=== PATIENT | male | born 1970 | race African-American/Black ===

== ENCOUNTER 2018-08-09 10:25 | Emergency (ER) | payer BC ==
[~2018-08-09] VITALS: Ht 203.2 cm; Wt 129.3 kg
--- OUTSIDE RECORDS SUMMARY | 2018-08-09 10:30 | XMS REPORT ---
Author Author RAFFI VAZQUEZ [facility] Address [address] [place] [address] Care Team Providers Care Sales Representative Name Role Phone RAFFI VAZQUEZ Unavailable PROBLEMS Type Condition ICD9-CM Code IZF45-GU Code Onset Dates Condition Status SNOMED Code Problem Insomnia, unspecified 780.52 Active 195288757 Problem Lumbago with sciatica, left side M54.42 Active 140332187 Problem Adult behavior problem F69 Active 421935457335675 Problem Carpal tunnel syndrome 354.0 Active 42725705 Problem Pain in joint, lower leg 719.46 Active 553844924 Problem Other hyperlipidemia E78.4 Active 78245343 Problem Hypertension 401.9 Active 24676342 ALLERGIES Substance Reaction Event Type Date Status Omnicef Unknown Drug Allergy Jun, Active SOCIAL HISTORY Never Assessed PLAN OF CARE VITAL SIGNS Height 80 in 2016-07-12 Weight 282 lbs 2016-07-12 Temperature 99 degrees Fahrenheit 2016-07-12 Heart Rate 90 bpm 2016-07-12 Respiratory Rate 18 2016-07-12 BMI 30.98 kg/m2 2016-07-12 Blood pressure systolic 140 mmHg 2016-07-12 Blood pressure diastolic 90 mmHg 2016-07-12 MEDICATIONS Medication Instructions Dosage Frequency Start Date End Date Duration Status Fish Oil 1000 MG Orally Once a day 1 capsule 24h Active Lisinopril-Hydrochlorothiazide 20-12.5 MG Orally Once a day 2 tablets 24h Active Amlodipine Besylate 10 MG Orally Once a day 1 tablet 24h Active Aspirin 81 MG 1 tablet by Oral route 1 time per day May, Active PredniSONE 20 mg Orally Once a day 2 tablets 24h Jun, Jun, 05 days Active Pravastatin Sodium 10 MG Orally Once a day 1 tablet 24h Active RESULTS No Results PROCEDURES No Known procedures IMMUNIZATIONS No Known Immunizations MEDICAL (GENERAL) HISTORY Type Description Date Medical History hypertension Medical History hyperlipidemia Surgical History right ACL repair x2 Surgical History vasectomy Surgical History left foot surgery Surgical History cyst removed; right arm Surgical History pylonidol cyst Hospitalization History surgeries Hospitalization History mennangitis(spinal) 2002
--- OUTSIDE RECORDS SUMMARY | 2018-08-09 10:30 | XMS REPORT ---
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 Active 598402314 Problem Uncontrolled type 2 diabetes mellitus without complication, without long-term current use of insulin E11.65 Active 585885919 Problem Other hyperlipidemia E78.4 Active 02755982 Problem Hypertension 401.9 Active 06886444 Problem Lumbago with sciatica, left side M54.42 Active 798514701 Problem Adult behavior problem F69 Active 884029384230239 ALLERGIES Substance Reaction Event Type Date Status Omnicef Unknown Drug Allergy May, Active ENCOUNTERS Encounter Location Date Diagnosis [place] [id number] [place] [address]862- 3962 May, Traumatic plantar fasciitis S93.699A and 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 [facility] [id number] [place] [address]79- 0374 Jan, Uncontrolled type 2 diabetes mellitus without complication, without long-term current use of insulin E11.65 and Folliculitis L73.9 [place] [address] [address]48- 9642 Oct, Encounter for immunization Z23 [place] [address] [place] [id number] [place] [address]11- 0467 Oct, Uncontrolled type 2 diabetes mellitus without complication, without long-term current use of insulin E11.65 [facility] [id number] [place] [address] 75661- 1505 Oct, [facility] [id number] [place] [address] 07261- 9420 Sep, Uncontrolled type 2 diabetes mellitus without complication, without long-term current use of insulin E11.65 [facility] [address] [address]- 7217 Apr, [facility] [address] [address] Mar, Lumbago with sciatica, left side M54.42 [place] [address] 87797- 0415 Dec, [place] [address] 8[address]54- 0210 Sep, [place] [address] 64460- 0992 Sep, Adult behavior problem F69 [place] [address] 19352- 1933 Jul, Encounter for immunization Z23 [place] [address] 09778- 0877 Jun, Tendonitis M77.9 and Hypertension, benign I10 [place] [address] 84459- 0331 Jun, Tendonitis M77.9 and Hypertension, benign I10 [place] [address] 10552- 0984 May, [place] [address] 91932- 2920 February, [place] [address] [id number] [place] [address] 96471- 4671 Nov, [place] [address], [place] [address] 1063 Oct, Hypertension 401.9 [facility] [id number] [place] [address] 28533- 9872 Sep, Knee pain, left M25.562 [facility] [id number] [place] [address] 49240- 9310 Sep, Upper respiratory tract infection, unspecified type J06.9 and Cough R05 [facility] [id number] [place] [address] 64837- 6371 Jul, [facility] [id number] [place] [address] 68674- 8262 Jul, [facility] [id number] [place] [address] 58544- 5272 Jul, [facility] [id number] [place] [address] 30787- 3014 Jul, Encounter for immunization Z23 [facility] [id number] [place] [address] 65393- 9927 29 Jun, 2015 Knee pain, left 719.46 [facility] [id number] [place] [address] 28627- 0673 28 Jun, 2015 Hypertension 401.9 [facility] [address] [place] [address] 65530- 2063 11 Jun, 2015 Left knee pain 719.46 [facility] [address] [place] [address] 33056- 3343 May, [facility] [id number] [place] [address] 62970- 1706 14 Jan, 2015 [facility] [id number] [place] [address] 13276- 0010 Jan, [facility] [address] [place] [address] 96984- 8015 Aug, [facility] [place] [facility] [address] [id number] [place] [address]- 2274 Aug, [facility] [place] [facility] [address] [id number] [place] [address] Aug, [facility] [place] [facility] [address] [id number] [place] 3[address] Jul, [facility] [place] [facility] [address] [id number] [place] [address]- 5434 Jul, [facility] [place] [facility] [address] [id number] [place] [address]- 2512 Jul, [facility] [place] [facility] [address] [id number] [place] [address]- 8525 Jul, [facility] [place] [facility] [address] [id number] [place] [address]- 9178 Jul, [facility] [place] [facility] [address] [id number] [place] [address]- 4915 Jul, [facility] [place] [facility] [address] [id number] [place] [address]- 9531 Jun, [facility] [place] [facility] [address] [id number] [place] [address]- 0234 Jun, [facility] [place] [facility] [address] [id number] [place] [address]- 0702 Jun, [facility] [place] [facility] [address] [id number] [place] [address]- 5589 Jun, [facility] [place] [facility] [address] [id number] [place] [address]- 8707 May, [facility] [place] [facility] [address] [id number] [place] [address]- 3922 May, [facility] [place] [facility] [address] [id number] [place] [address]- 2266 May, [facility] [place] [facility] [address] [id number] [place] [address]- 7275 May, [facility] [place] [facility] [address] [id number] [place] [address]- 0999 May, [facility] [place] [facility] [address] [id number] [place] [address]- 8503 May, [facility] [place] [facility] [address] [id number] [place] [address]- 2266 Apr, [facility] [place] [facility] [address] [id number] [place] [address]- 1207 Apr, [facility] [place] [facility] [address] [id number] [place] [address]- 4743 February, [facility] [place] [facility] [address] [id number] [place] [address]- 5996 February, [facility] [place] [facility] [address] [id number] [place] [address]- 8680 February, [facility] [place] [facility] [address] [id number] [place] [address]- 0367 Jan, [facility] [place] [facility] [address] [id number] [place] [address]- 1953 Nov, [facility] [place] [facility] [address] [id number] [place] [address]- 8343 Nov, [facility] [place] [facility] [address] [id number] [place] [address]- 2713 Oct, [facility] [place] [facility] [address] [id number] [place] [address]- 8079 Sep, [facility] [place] [facility] [address] [id number] [place] [address]- 4589 Sep, [facility] [place] [facility] [address] [id number] [place] [address]- 1616 Jul, [facility] [place] [facility] [address] [id number] [place] [address]- 7816 Jul, [facility] [place] [facility] [address] [place] [address]- 2546 Mar, [facility] [address], [place] [address]- 7596 Jan, [facility] [address], [place] [address] 2546 Jan, [facility] [id number] [place] [address] 64319- 4895 Dec, [facility] [id number] [place] [address] 31325- 6136 Nov, [facility] [address] [place] [id number] [place] [address] [id number] Oct, [facility] [id number] [place] [address] 66636- 4046 Oct, [facility] [id number] [place] [address] 17647- 5286 Oct, [facility] [address], [place] [address]- 8440 Sep, [facility] [id number] [place] [address] 84175- 7626 Sep, [facility] [address], [place] [address]- 2286 Jan, IMMUNIZATIONS No Known Immunizations SOCIAL HISTORY Never Assessed REASON FOR VISIT Pain (acute) foot Pt c/o R foot pain, starts at top of foot, radiates into arch and now up into calf of Rt leg, went on canoe trip two weeks ago and foot started hurting right after canoe trip, does not recal actual injury SHARRON Ray PLAN OF CARE VITAL SIGNS Height 80 in 2018-05-20 Weight 285.3 lbs 2018-05-20 Temperature 98.3 degrees Fahrenheit 2018-05-20 Heart Rate 118 bpm 2018-05-20 Respiratory Rate 18 2018-05-20 BMI 31.34 kg/m2 2018-05-20 Blood pressure systolic 162 mmHg 2018-05-20 Blood pressure diastolic 98 mmHg 2018-05-20 MEDICATIONS Medication Instructions Dosage Frequency Start Date End Date Duration Status Aspirin 81 MG 1 tablet by Oral route 1 time per day May, Active Farxiga 10 mg Orally Once a day 1 tablet 24h Oct, Active Lisinopril-Hydrochlorothiazide 20-12.5 MG Orally Once a day 2 tablets 24h 90 Active Amlodipine Besylate 10 MG TAKE ONE TABLET BY MOUTH ONCE DAILY (MUST HAVE APPOINTMENT FOR FURTHER REFILLS) 90 Active Fish Oil 1000 MG Orally Once a day 1 capsule 24h Active MetFORMIN HCl ER 500 mg Orally twice a day 2 tablets 12h Active Pravastatin Sodium 10 MG TAKE ONE TABLET BY MOUTH ONCE DAILY (MUST HAVE APPOINTMENT FOR FURTHER REFILLS) 90 Active PredniSONE 20 mg Orally Once a day 2 tablets 24h May, May, 05 days Active Glimepiride 4 MG Orally Once a day 1 tablet with breakfast or the first main meal of the day 24h Active Diclofenac Sodium 75 MG Orally Twice a day 1 tablet with food or milk 12h May, Jul, 30 day(s) Active Viagra 100 mg Orally Once a day 1 tablet as needed 24h May,May 10 days Active RESULTS No Results PROCEDURES No Known procedures INSTRUCTIONS MEDICATIONS ADMINISTERED No Known Medications MEDICAL (GENERAL) HISTORY Type Description Date Medical History hypertension Medical History hyperlipidemia Surgical History right ACL repair x2 Surgical History vasectomy Surgical History left foot surgery Surgical History cyst removed; right arm Surgical History pylonidol cyst Hospitalization History surgeries Hospitalization History mennangitis(spinal) 2001 Hospitalization History [place] 09/2017
--- OUTSIDE RECORDS SUMMARY | 2018-08-09 10:30 | XMS REPORT ---
Author Author RAFFI VAZQUEZ Organization 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 Active 553727866 Problem Uncontrolled type 2 diabetes mellitus without complication, without long-term current use of insulin E11.65 Active 929194813 Problem Other hyperlipidemia E78.4 Active 31826874 Problem Hypertension 401.9 Active 06965468 Problem Lumbago with sciatica, left side M54.42 Active 607529436 Problem Adult behavior problem F69 Active [id number] ALLERGIES Substance Reaction Event Type Date Status Omnicef Unknown Drug Allergy Jan, Active ENCOUNTERS Encounter Location Date Diagnosis [place] [address] [address]- [address] May, Traumatic plantar fasciitis S93.699A and 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 [address] [address]- 2800 Sep, Uncontrolled type 2 diabetes mellitus without complication, without long-term current use of insulin E11.65 [facility] [address] 02896- 0401 Apr, [facility] [address] [address] -[address]33 Mar, Lumbago with sciatica, left side M54.42 [facility] [address] 65006- 5326 Dec, [facility] [address] 51629- 7350 Sep, [facility] [address] 58343- 2055 Sep, Adult behavior problem F69 [place] [address] 03137- 0022 Jul, Encounter for immunization Z23 [place] [address] 00841- 6800 26 Jun, 2016 Tendonitis M77.9 and Hypertension, benign I10 [facility] [address] 78961- 2571 Jun, Tendonitis M77.9 and Hypertension, benign I10 [facility] [address] [place] [id number] [place] [address] 81763- 8749 May, [facility] [address] 25862- 5591 February, [facility] [address] 73641- 1568 Nov, [facility] [address] 37581- 8153 Oct, Hypertension 401.9 [facility] [id number] [place] [address] 20042- 4884 Sep, Knee pain, left M25.562 [facility] [id number] [place] [address] 32799- 6993 Sep, Upper respiratory tract infection, unspecified type J06.[address] [facility] [id number] [place] [address] 46930- 8507 Jul, [facility] [id number] [place] [address] 28386- 2591 Jul, [facility] [id number] [place] [address] 15595- 8429 Jul, [facility] [id number] [place] [address] 31509- 0607 Jul, Encounter for immunization Z23 [facility] [id number] [place] [address] 27800- 7926 29 Jun, 2015 Knee pain, left 719.46 [facility] [id number] [place] [address] 38941- 8682 28 Jun, [address] [facility] [id number] [place] [address] 43988- 7180 11 Jun, 2015 Left knee pain 719.46 [facility] [id number] [place] [address] 80289- 3375 May, [facility] [id number] [place] [address] 01463- 7585 Jan, [facility] [id number] [place] [address] 66615- 6723 13 Jan, 2015 [facility] [id number] [place] [address] 63868- 0727 Aug, [facility] [address] 03078- 2546 Aug, [facility] [place] [facility] [address] [id number] [place] [address]- 9360 Aug, [facility] [place] [facility] [address] [id number] [place] [address]- 0451 Jul, [facility] [place] [facility] [address] [id number] [place] 2305 Jul, [facility] [place] [facility] [address] [id number] [place] [address]- 4133 Jul, [facility] [place] [facility] [address] [id number] [place] [address]- 3759 Jul, [facility] [place] [facility] [address] [id number] [place] [address]- 3118 Jul, [facility] [place] [facility] [address] [id number] [place] [address]- 1791 Jul, [facility] [place] [facility] [address] [id number] [place] [address]- 6958 Jun, [facility] [place] [facility] [address] [id number] [place] [address]- 7274 Jun, [facility] [place] [facility] [address] [id number] [place] [address]- 0289 Jun, [facility] [place] [facility] [address] [id number] [place] [address]- 9455 Jun, [facility] [place] [facility] [address] [id number] [place] [address]- 7817 May, [facility] [place] [facility] [address] [id number] [place] [address]- 4079 May, [facility] [place] [facility] [address] [id number] [place] [address]- 1572 May, [facility] [place] [facility] [address] [id number] [place] [address]- 4460 May, [facility] [place] [facility] [address] [id number] [place] [address]- 2546 May, [facility] [address] [id number] [place] [address]- 9469 May, [facility] [place] [facility] [address] [id number] [place] [address]- 2546 Apr, [facility] [address] [id number] [place] [address]- 9088 Apr, [facility] [place] [facility] [address] [id number] [place] [address]- 7048 February, [facility] [address] [id number] [place] [address]- 6776 February, [facility] [address] [id number] [place] [address]- 7126 February, [facility] [place] [facility] [address] [id number] [place] [address]- 3806 Jan, [facility] [address] [id number] [place] [address]- 2943 Nov, [facility] [address] [id number] [place] [address]- 2696 Nov, [facility] [address] [id number] [place] [address]- 2546 Oct, [facility] [address] [id number] [place] [address]- 2546 Sep, [facility] [place] [facility] [address] [id number] [place] [address]- 2546 Sep, [facility] [place] [facility] [address] [id number] [place] [address]- 2546 Jul, [facility] [place] [facility] [address] [id number] [place] [address]- 2546 Jul, [facility] [place] [facility] [address] [id number] [place] [address]- 2546 Mar, [facility] [address], [place] [address] 0526 Jan, [facility] [address] [address] 2546 Jan, [facility] [address], [place] [address]- 6386 Dec, [facility] [address] [place] [id number] [place] [address] 86893 2546 Nov, [facility] [address] [id number] Oct, [facility] [address] [id number] [place] [address] 55082- 1046 Oct, [facility] [id number] [place] [address] 01100- 5956 Oct, [facility] [id number] [place] [address] 85943- 2766 Sep, [facility] [address] [place] [address] 38998- 4676 Sep, [facility] [address], [place] [address]- 4016 Jan, IMMUNIZATIONS No Known Immunizations SOCIAL HISTORY Never Assessed REASON FOR VISIT Diabetes----DBennettRN, NEED MICRO, UNABLE TO VOID PLAN OF CARE Activity Details Follow Up 3 Months Reason:dm2 3mo. checkup VITAL SIGNS Height 80 in 2018-02-11 Weight 269 lbs 2018-02-11 Temperature 98.8 degrees Fahrenheit 2018-02-11 Heart Rate 70 bpm 2018-02-11 Respiratory Rate 20 2018-02-11 BMI 29.55 kg/m2 2018-02-11 Blood pressure systolic 138 mmHg 2018-02-11 Blood pressure diastolic 94 mmHg 2018-02-11 MEDICATIONS Medication Instructions Dosage Frequency Start Date End Date Duration Status Pravastatin Sodium 10 MG TAKE ONE TABLET BY MOUTH ONCE DAILY (MUST HAVE APPOINTMENT FOR FURTHER REFILLS) 90 Active Cephalexin 500 mg Orally 4 times a day 1 capsule 6h Jan, February, 10 day(s) Active Aspirin 81 MG 1 tablet by Oral route 1 time per day May, Active Amlodipine Besylate 10 MG TAKE ONE TABLET BY MOUTH ONCE DAILY (MUST HAVE APPOINTMENT FOR FURTHER REFILLS) 90 Active Fish Oil 1000 MG Orally Once a day 1 capsule 24h Active Glimepiride 4 MG Orally Once a day 1 tablet with breakfast or the first main meal of the day 24h Active MetFORMIN HCl ER 500 mg Orally twice a day 2 tablets 12h Active Lisinopril-Hydrochlorothiazide 20-12.5 MG Orally Once a day 2 tablets 24h 90 Active Farxiga 10 mg Orally Once a day 1 tablet 24h Oct, Active RESULTS Name Result Date Reference Range A1C (IN HOUSE) 2018-02-11 A1C IN HOUSE 7.7 4.3 - 5.6 % Previous A1c n/a Lot [id number] Exp date 12/09 PROCEDURES Procedure Date Ordered Result Body Site GLYCATED HEMOGLOBIN TEST February 11, 2018 INSTRUCTIONS MEDICATIONS ADMINISTERED No Known Medications MEDICAL (GENERAL) HISTORY Type Description Date Medical History hypertension Medical History hyperlipidemia Surgical History right ACL repair x2 Surgical History vasectomy Surgical History left foot surgery Surgical History cyst removed; right arm Surgical History pylonidol cyst Hospitalization History surgeries Hospitalization History mennangitis(spinal) 2001 Hospitalization History [facility] 09/2017
--- OUTSIDE RECORDS SUMMARY | 2018-08-09 10:31 | XMS REPORT ---
Author WESLEY Augustin Organization [employer] Address Unknown Phone Unavailable Care Team Providers Care Enameler Name Role Phone WESLEY MOYER CP Unavailable Allergies No Known Allergies Problems Problem Type Condition ICD-9 Code Onset Dates Condition Status Problem Other and unspecified noninfectious gastroenteritis and colitis 558.9 Active Problem Routine general medical examination at health care facility V70.0 Active Problem Insomnia, unspecified 780.52 Active Problem Need for prophylactic vaccination and inoculation, Influenza V04.81 Active Problem Carpal tunnel syndrome 354.0 Active Problem Pain in joint, lower leg 719.46 Active Problem Abdominal pain, other specified site 789.09 Active Problem Other and unspecified hyperlipidemia 272.4 Active Medications Medication Code System Code Instructions Start Date End Date Status Dosage Pravastatin Sodium [facility] [address]-24 10 MG Orally Once a day 1 tablet Amlodipine Besylate [facility] [address]-54 10 MG Orally Once a day 1 tablet Lisinopril-Hydrochlorothiazide [facility] [address]-45 20-25 MG Orally Once a day 1 tablet Results No Known Results Summary Purpose [employer] Submission
--- OUTSIDE RECORDS SUMMARY | 2018-08-09 10:31 | XMS REPORT ---
Author RAFFI Mari Organization [employer] Address Unknown Phone Unavailable Care Team Providers Care Clock And Watch Hands Painter Name Role Phone RAFFI VAZQUEZ CP Unavailable Allergies No Known Allergies Problems Problem Type Condition Code Onset Dates Condition Status Problem Pain in joint, lower leg 719.46 Active Problem Other and unspecified noninfectious gastroenteritis and colitis 558.9 Active Problem Need for prophylactic vaccination and inoculation, Influenza V04.81 Active Problem Routine general medical examination at health care facility V70.0 Active Problem Hypertension 401.9 Active Problem Other and unspecified hyperlipidemia 272.4 Active Problem Carpal tunnel syndrome 354.0 Active Problem Insomnia, unspecified 780.52 Active Problem Abdominal pain, other specified site 789.09 Active Medications Medication Code System Code Instructions Start Date End Date Status Dosage 5-Hydroxytryptophan NDC 0 100 MG Orally Once a day Aug 04, 2015 1 capsule with a meal Results No Known Results Summary Purpose [employer] Submission
--- OUTSIDE RECORDS SUMMARY | 2018-08-09 10:31 | XMS REPORT ---
Author Author RAFFI VAZQUEZ Organization [facility] Address [address] [place] [address] Care Team Providers Care Ward Supervisor Name Role Phone RAFFI VAZQUEZ Unavailable PROBLEMS Type Condition ICD9-CM Code RFX56-HX Code Onset Dates Condition Status SNOMED Code Problem Pain in joint, lower leg 719.46 Active 626046399 Problem Insomnia, unspecified 780.52 Active 416254064 Problem Uncontrolled type 2 diabetes mellitus without complication, without long-term current use of insulin E11.65 Active 823488792 Problem Lumbago with sciatica, left side M54.42 Active 493558247 Problem Hypertension 401.9 Active 63570657 Problem Carpal tunnel syndrome 354.0 Active 81943737 Problem Adult behavior problem F69 Active 033893052766923 Problem Other hyperlipidemia E78.4 Active 99562784 ALLERGIES No Information ENCOUNTERS Encounter Location Date Diagnosis [place] [address] [id number] [place] [address]82- 2054 Jan, [place] [address] [address]- 5121 Oct, Encounter for immunization Z23 [place] [address] 15967- 3711 Oct, Uncontrolled type 2 diabetes mellitus without complication, without long-term current use of insulin E11.65 [place] [id number] [place] [address] 06626- 5510 Oct, [place] [address] [address]23- 7676 Sep, Uncontrolled type 2 diabetes mellitus without complication, without long-term current use of insulin E11.65 [place] [id number] [place] [address] 18373- 4797 Apr, [facility] [address] [place] [address] 73252 -5476 Mar, Lumbago with sciatica, left side M54.42 [facility] [id number] [place] [address] 82316- 3635 Dec, [facility] [id number] [place] [address] 04346- 8127 Sep, [facility] [address] [address]212- 2133 Sep, Adult behavior problem F69 [place] [address] 52858- 9191 Jul, Encounter for immunization Z23 [facility] [id number] [place] [address] 83955- 8812 Jun, Tendonitis M77.9 and Hypertension, benign I10 [facility] [address] 06297- 1769 Jun, Tendonitis M77.9 and Hypertension, benign I10 [facility] [address] 44529- 2128 May, [facility] [id number] [place] [address] 92209- 3637 February, [facility] [id number] [place] [address] 67570- 0562 Nov, [facility] [id number] [place] [address] 96376- 0956 Oct, Hypertension 401.9 [facility] [id number] [place] [address] 83490- 1886 08 Sep, 2015 Knee pain, left M25.562 [facility] [id number] [place] [address] 61093- 9187 03 Sep, 2015 Upper respiratory tract infection, unspecified type J06.9 and Cough R05 [facility] [id number] [address] 5717 30 Jul, 2015 [facility] [id number] [place] [address] 90233- 1879 20 Jul, 2015 [facility] [id number] [place] [address] 45888- 1214 16 Jul, 2015 [facility] [id number] [place] [address] 45144- 8001 06 Jul, 2015 Encounter for immunization Z23 [facility] [address] [facility] [id number] [place] [address] 77552- 9927 29 Jun, 2015 Knee pain, left 719.46 [facility] [id number] [place] [address] 53002- 9444 28 Jun, 2015 Hypertension 401.9 [facility] [id number] [place] [address] 48948- 2977 11 Jun, 2015 Left knee pain 719.46 [facility] [id number] [place] [address] 17317- 0239 May, [facility] [id number] [place] [address] 38080- 1904 14 Jan, 2015 [facility] [id number] [place] [address] 44163- 0716 Jan, [facility] [id number] [place] [address] 78774- 8394 Aug, [facility] [address] [address] 3130 Aug, [facility] [id number] [place] [address] 61064- 4960 Aug, [facility] [id number] [place] [address] 88659- 9041 Jul, [facility] [address] [address]- 3429 Jul, [facility] [place] [facility] [address] [id number] [place] [address]- 1561 Jul, [facility] [place] [facility] [address] [id number] [place] [address]- 8491 Jul, [facility] [place] [facility] [address] [id number] [place] [address]- 9916 Jul, [facility] [place] [facility] [address] [id number] [place] [address]- 2920 Jul, [facility] [place] [facility] [address] [id number] [place] [address]- 3878 Jun, [facility] [place] [facility] [address] [id number] [place] [address]- 3626 Jun, [facility] [place] [facility] [address] [id number] [place] [address]- 3958 Jun, [facility] [place] [facility] [address] [id number] [place] [address]- 5778 Jun, [facility] [place] [facility] [address] [id number] [place] [address]- 9006 May, [facility] [place] [facility] [address] [id number] [place] [address]- 7267 May, [facility] [place] [facility] [address] [id number] [place] [address]- 6502 May, [facility] [place] [facility] [address] [id number] [place] [address]- 8856 May, [facility] [place] [facility] [address] [id number] [place] [address]- 0733 May, [facility] [place] [facility] [address] [id number] [place] [address]- 3462 May, [facility] [place] [facility] [address] [id number] [place] [address]- 1205 Apr, [facility] [place] [facility] [address] [id number] [place] [address]- 8597 Apr, [facility] [address] [id number] [place] [address]- 9529 February, [facility] [place] [facility] [address] [id number] [place] [address]- 0804 February, [facility] [place] [facility] [address] [facility] [id number] [place] [address]- 9795 February, [facility] [place] [facility] [address] [id number] [place] [address]- 1943 Jan, [facility] [place] [facility] [address] [id number] [place] [address]- 1970 Nov, [facility] [place] [facility] [address] [id number] [place] [address]- 8023 Nov, [facility] [place] [facility] [address] [id number] [place] [address]- 7365 Oct, [facility] [place] [facility] [address] [id number] [place] [address]- 4655 Sep, [facility] [place] [facility] [address] [id number] [place] [address]- 2937 Sep, [facility] [place] [facility] [address] [id number] [place] [address]- 8803 Jul, [facility] [place] [facility] [address] [id number] [place] [address]- 7438 Jul, [facility] [place] [facility] [address] [id number], [place] [address] 2548 Mar, [facility] [place] [facility] [address] [id number] [place] [address]- 4107 Jan, [facility] [place] [facility] [address] [id number] [place] [address]- 8176 Jan, [facility] [place] [facility] [address] [id number] [place] [address]- 4046 Dec, [facility] [place] [facility] [address] [facility] [id number], [place] [address]- 2546 Nov, [facility] [address] [facility] [id number] [id number] Oct, [facility] [address] [place] [id number] [address]- 4576 Oct, [facility] [address] [facility] [id number], [place] [address]- 5386 Oct, [facility] [address] [facility] [id number], [place] [address]- 9303 Sep, [facility] [address] [facility] [id number], [place] [address]- 6046 Sep, [facility] [address] [facility] [id number], [place] [address]- 4706 Jan, IMMUNIZATIONS No Known Immunizations SOCIAL HISTORY Never Assessed REASON FOR VISIT med refill PLAN OF CARE VITAL SIGNS MEDICATIONS Medication Instructions Dosage Frequency Start Date End Date Duration Status Lisinopril-Hydrochlorothiazide 20-12.5 MG Orally Once a day 2 tablets 24h 90 days Active Amlodipine Besylate 10 MG Orally Once a day 1 tablet 24h 90 days Active Pravastatin Sodium 10 MG Orally Once a day 1 tablet 24h 90 days Active RESULTS No Results PROCEDURES No Known procedures INSTRUCTIONS MEDICATIONS ADMINISTERED No Known Medications MEDICAL (GENERAL) HISTORY Type Description Date Medical History hypertension Medical History hyperlipidemia Surgical History right ACL repair x2 Surgical History vasectomy Surgical History left foot surgery Surgical History cyst removed; right arm Surgical History pylonidol cyst Hospitalization History surgeries Hospitalization History mennangitis(spinal) 2001 Hospitalization History DKA-[facility] 09/2017
--- OUTSIDE RECORDS SUMMARY | 2018-08-09 10:31 | XMS REPORT ---
Author Author RAFFI VAZQUEZ Organization [facility] Address [address] [place] [address] Care Team Providers Care Outside Laborer Name Role Phone RAFFI VAZQUEZ Unavailable PROBLEMS Type Condition ICD9-CM Code RPZ66-HU Code Onset Dates Condition Status SNOMED Code Problem Pain in joint, lower leg 719.46 Active 831518553 Problem Insomnia, unspecified 780.52 Active 719479773 Problem Uncontrolled type 2 diabetes mellitus without complication, without long-term current use of insulin E11.65 Active 309878426 Problem Lumbago with sciatica, left side M54.42 Active 888444921 Problem Hypertension 401.9 Active 76728902 Problem Carpal tunnel syndrome 354.0 Active 77183643 Problem Adult behavior problem F69 Active 413061554711079 Problem Other hyperlipidemia E78.4 Active 86556896 ALLERGIES No Information ENCOUNTERS Encounter Location Date Diagnosis [place] [address] [address]- [address]33 Jan, Uncontrolled type 2 diabetes mellitus without complication, without long-term current use of insulin E11.65 and Folliculitis L73.9 [place] [address] 36726- 6769 Oct, Encounter for immunization Z23 [place] [address] 35534- 3239 Oct, Uncontrolled type 2 diabetes mellitus without complication, without long-term current use of insulin E11.65 [place] [address] 30728- 8602 Oct, [place] [address] 55267- 5176 Sep, Uncontrolled type 2 diabetes mellitus without complication, without long-term current use of insulin E11.65 [place] [address] [id number] [place] [address] 78236- 7297 Apr, [facility] [id number] [place] [address] 82224 -4614 Mar, Lumbago with sciatica, left side M54.42 [facility] [id number] [place] [address] 26105- 4898 Dec, [facility] [address] 81594- 3063 Sep, [facility] [address] 52373- 1164 Sep, Adult behavior problem F69 [facility] [address] 92293- 3123 Jul, Encounter for immunization Z23 [facility] [address] 74297- 7767 Jun, Tendonitis M77.9 and Hypertension, benign I10 [facility] [id number] [place] [address] 38317- 8440 Jun, Tendonitis M77.9 and Hypertension, benign I10 [facility] [id number] [place] [address] 23979- 2395 May, [facility] [id number] [place] [address] 17772- 2671 February, [facility] [id number] [place] [address] 23108- 5788 Nov, [facility] [id number] [place] [address] 16938- 6124 Oct, Hypertension 401.9 [facility] [id number] [place] [address] 70398- 4450 08 Sep, 2015 Knee pain, left M25.562 [facility] [id number] [place] [address] 04796- 5184 Sep, Upper respiratory tract infection, unspecified type J06.9 and Cough R05 [facility] [address] [address]- 5696 Jul, [facility] [id number] [place] [address] 77430- 4844 Jul, [facility] [id number] [place] [address] 11954- 6912 Jul, [facility] [id number] [place] [address] 06136- 5180 Jul, Encounter for immunization Z23 [facility] [id number] [place] [address] 20885- 4393 29 Jun, 2015 Knee pain, left 719.46 [facility] [id number] [place] [address] 05852- 9654 28 Jun, 2015 Hypertension 401.9 [facility] [id number] [place] [address] 49671- 4266 11 Jun, 2015 Left knee pain 719.46 [facility] [id number] [place] [address] 07689- 1277 May, [facility] [id number] [place] [address] 46108- 3800 Jan, [facility] [address] [address]- 5987 Jan, [facility] [id number] [place] [address] 44048- 4755 Aug, [facility] [address] [place] [address] 12579- 3182 Aug, [facility] [id number] [place] [address] 61479- 4059 Aug, [facility] [address] [address]- 7445 Jul, [facility] [address] [place] [address]- 9274 Jul, [facility] [place] [facility] [address] [id number] [place] [address]- 8859 Jul, [facility] [place] [facility] [address] [id number] [place] [address]- 8196 Jul, [facility] [place] [facility] [address] [id number] [place] [address]- 9570 Jul, [facility] [place] [facility] [address] [id number] [place] [address]- 0922 Jul, [facility] [place] [facility] [address] [id number] [place] [address]- 6538 Jun, [facility] [place] [facility] [address] [id number] [place] [address]- 1273 Jun, [facility] [place] [facility] [address] [id number] [place] [address]- 4868 Jun, [facility] [place] [facility] [address] [id number] [place] [address]- 3111 Jun, [facility] [place] [facility] [address] [id number] [place] [address]- 5640 May, [facility] [place] [facility] [address] [id number] [place] [address]- 9602 May, [facility] [place] [facility] [address] [id number] [place] [address]- 6827 May, [facility] [place] [facility] [address] [id number] [place] [address]- 7515 May, [facility] [place] [facility] [address] [id number] [place] [address]- 9037 May, [facility] [place] [facility] [address] [id number] [place] [address]- 3188 May, [facility] [place] [facility] [address] [id number] [place] [address]- 5965 Apr, [facility] [address] [id number] [place] [address]- 6870 Apr, [facility] [place] [facility] [address] [id number] [place] [address]- 9693 February, [facility] [address] [id number] [place] 4438 February, [facility] [place] [facility] [address] [id number] [place] [address]- 5132 February, [facility] [address] [id number] [place] 5426 Jan, [facility] [place] [facility] [address] [id number] [place] 0278 Nov, [facility] [place] [facility] [address] [id number] [place] [address]- 7082 Nov, [facility] [place] [facility] [address] [id number] [place] [address]- 0433 Oct, [facility] [place] [facility] [address] [id number] [place] [address]- 4538 Sep, [facility] [place] [facility] [address] [id number] [place] [address]- 8933 Sep, [facility] [place] [facility] [address] [id number] [place] [address]- 8844 Jul, [facility] [place] [facility] [address] [id number] [place] [address]- 2053 Jul, [facility] [place] [facility] [address] [id number] [place] [address]- 9477 Mar, [facility] [place] [facility] [address] [id number] [place] [address]- 2606 Jan, [facility] [place] [facility] [address] [id number] [place] [address]- 6257 Jan, [facility] [place] [facility] [id number] [address]- 2546 Dec, [facility] [id number] [address]- 2546 Nov, [facility] [address] [facility] [id number] [id number] Oct, [facility] [address] [address]- 2546 Oct, [facility] [address], [place] [address]- 2546 Oct, [facility] [address], [place] [address]- 2546 Sep, [facility] [address] [address]- 2546 Sep, [facility] [address] [address]- 2546 Jan, IMMUNIZATIONS No Known Immunizations SOCIAL HISTORY Never Assessed REASON FOR VISIT Refill request PLAN OF CARE VITAL SIGNS MEDICATIONS Medication Instructions Dosage Frequency Start Date End Date Duration Status Farxiga 10 mg Orally Once a day 1 tablet 24h Oct, Active RESULTS No Results PROCEDURES No Known procedures INSTRUCTIONS MEDICATIONS ADMINISTERED No Known Medications MEDICAL (GENERAL) HISTORY Type Description Date Medical History hypertension Medical History hyperlipidemia Surgical History right ACL repair x2 Surgical History vasectomy Surgical History left foot surgery Surgical History cyst removed; right arm Surgical History pylonidol cyst Hospitalization History surgeries Hospitalization History mennangitis(spinal) 2001 Hospitalization History DKA-[facility] 09/2017
--- OUTSIDE RECORDS SUMMARY | 2018-08-09 10:31 | XMS REPORT ---
Author Author RAFFI VAZQUEZ Organization [facility] Address [address] [place] [address] Care Team Providers Care Production Supervisor Trainee Name Role Phone RAFFI VAZQUEZ Unavailable PROBLEMS Type Condition ICD9-CM Code [id number] Code Onset Dates Condition Status SNOMED Code Problem Insomnia, unspecified 780.52 Active 092128339 Problem Lumbago with sciatica, left side M54.42 Active 818739777 Problem Adult behavior problem F69 Active 921442480523481 Problem Carpal tunnel syndrome 354.0 Active 73048583 Problem Pain in joint, lower leg 719.46 Active 683913769 Problem Other hyperlipidemia E78.4 Active 24467322 Problem Hypertension 401.9 Active 59506214 ALLERGIES No Information SOCIAL HISTORY Never Assessed PLAN OF CARE VITAL SIGNS MEDICATIONS Medication Instructions Dosage Frequency Start Date End Date Duration Status Pravastatin Sodium 10 MG Orally Once a day 1 tablet 24h Active Lisinopril-Hydrochlorothiazide 20-12.5 MG Orally Once [...]
--- OUTSIDE RECORDS SUMMARY | 2018-08-09 10:31 | XMS REPORT ---
Author Author RAFFI VAZQUEZ Organization [employer] Address Unknown Phone Unavailable Care Team Providers Care Public Health Inspector Name Role Phone RAFFI VAZQUEZ CP Unavailable Allergies No Known Allergies Problems Problem Type Condition Code Onset Dates Condition Status Problem Hypertension 401.9 Active Problem Insomnia, unspecified 780.52 Active Problem Other hyperlipidemia E78.4 Active Assessment Hypertension 401.9 Active Problem Carpal tunnel syndrome 354.0 Active Problem Pain in joint, lower leg 719.46 Active Medications Medication Code System Code Instructions Start Date End Date Status Dosage Aspirin [facility] [address]-14 81 MG Jun 06, 2014 1 tablet by Oral route 1 time per day Pravastatin Sodium [facility] [address]-00 10 MG Orally Once a day 1 tablet Lisinopril-Hydrochlorothiazide [facility] [address]-13 20-12.5 MG Orally Once a day 2 tablets Amlodipine Besylate [facility] [address]-77 10 MG Orally Once a day 1 tablet Results No Known Results Summary Purpose eClinicalWorks Submission
--- OUTSIDE RECORDS SUMMARY | 2018-08-09 10:31 | XMS REPORT ---
Author Author RADHA LA Organization [facility] Address [address] [place] [address] Care Team Providers Care Elementary Art Teacher Name Role Phone RADHA LA Unavailable PROBLEMS Type Condition ICD9-CM Code URX81-CS Code Onset Dates Condition Status SNOMED Code Problem Insomnia, unspecified 780.52 Active 540092273 Problem Lumbago with sciatica, left side M54.42 Active 393400441 Problem Adult behavior problem F69 Active 101497465647170 Problem Carpal tunnel syndrome 354.0 Active 03852434 Problem Pain in joint, lower leg 719.46 Active 565639795 Problem Other hyperlipidemia E78.4 Active 67432102 Problem Hypertension 401.9 Active 21746926 ALLERGIES Substance Reaction Event Type Date Status Omnicef Unknown Drug Allergy Mar, Active SOCIAL HISTORY Never Assessed PLAN OF CARE Activity Details Follow Up prn Reason: VITAL SIGNS Height 80 in 2017-03-22 Weight 282.2 lbs 2017-03-22 Temperature 98.2 degrees Fahrenheit 2017-03-22 Heart Rate 76 bpm 2017-03-22 Respiratory Rate 20 2017-03-22 BMI 31.00 kg/m2 2017-03-22 Blood pressure systolic 122 mmHg 2017-03-22 Blood pressure diastolic 84 mmHg 2017-03-22 MEDICATIONS Medication Instructions Dosage Frequency Start Date End Date Duration Status Aspirin 81 MG 1 tablet by Oral route 1 time per day May, Active Pravastatin Sodium 10 MG Orally Once a day 1 tablet 24h Active Amlodipine Besylate 10 MG Orally Once a day 1 tablet 24h Active Fish Oil 1000 MG Orally Once a day 1 capsule 24h Active Lisinopril-Hydrochlorothiazide 20-12.5 MG Orally Once a day 2 tablets 24h Active PredniSONE 20 MG Orally 3 tablets x 3 days, followed by 2 tablets x 3 days, followed by 1 tablet x 3 days. as directed Mar, Mar, 9 days Active Ibuprofen 800 MG Orally Three times a day 1 tablet with food or milk 8h 03 Adolfo, 2017 23 Adolfo, 2017 20 days Active Cyclobenzaprine HCl 10 MG Orally Three times a day 1 tablet as needed 8h Mar, Mar, 10 days Active RESULTS No Results PROCEDURES [...]
--- OUTSIDE RECORDS SUMMARY | 2018-08-09 10:31 | XMS REPORT ---
Author Author RAFFI VAZQUEZ [facility] Address [address] [place] [address] Care Team Providers Care Cracker Off Name Role Phone RAFFI VAZQUEZ Unavailable PROBLEMS Type Condition ICD9-CM Code FUA30-ZU Code Onset Dates Condition Status SNOMED Code Assessment Hypertension, benign I10 Jun, Active 71523194 Problem Other hyperlipidemia E78.4 Active 16737338 Problem Hypertension 401.9 Active 87471101 Problem Pain in joint, lower leg 719.46 Active 922294842 Assessment Tendonitis M77.9 Jun, Active 79604658 Problem Insomnia, unspecified 780.52 Active 401428955 Problem Carpal tunnel syndrome 354.0 Active 33365506 ALLERGIES Unknown Allergies SOCIAL HISTORY No smoking Hx information available PLAN OF CARE VITAL SIGNS MEDICATIONS Unknown Medications RESULTS Name Result Date Reference Range CBC 2016-07-15 WBC 13.9 3.4-10.8 RBC 5.54 4.14-5.80 Hemoglobin 16.5 12.6-17.7 Hematocrit 46.4 37.5-51.0 MCV 84 79-97 MCH 29.8 26.6-33.0 MCHC 35.6 31.5-35.7 RDW 14.3 12.3-15.4 Platelets 311 150-379 Neutrophils 53 Lymphs 37 Monocytes 9 Eos 1 Basos 0 Immature Cells Neutrophils (Absolute) 7.2 1.4-7.0 Lymphs (Absolute) 5.1 0.7-3.1 Monocytes(Absolute) 1.3 0.1-0.9 Eos (Absolute) 0.2 0.0-0.4 Baso (Absolute) 0.1 0.0-0.2 Immature Granulocytes 0 Immature Grans (Abs) 0.0 0.0-0.1 NRBC Hematology Comments: Note: LIPID PANEL 2016-07-15 Cholesterol, Total 224 100-199 Triglycerides 110 0-149 HDL Cholesterol 92 >39 VLDL Cholesterol Aki 22 5-40 LDL Cholesterol Calc 110 0-99 CMP 2016-07-15 Glucose, Serum 125 65-99 BUN 12 6-24 Creatinine, Serum 1.35 0.76-1.27 eGFR If NonAfricn Am 63 >59 eGFR If Africn Am 73 >59 BUN/Creatinine Ratio 9 9-20 Sodium, Serum 140 134-144 Potassium, Serum 4.8 3.5-5.2 Chloride, Serum 99 97-108 Carbon Dioxide, Total 26 18-29 Calcium, Serum 9.8 8.7-10.2 Protein, Total, Serum 6.8 6.0-8.5 Albumin, Serum 4.3 3.5-5.5 Globulin, Total 2.5 1.5-4.5 A/G Ratio 1.7 1.1-2.5 Bilirubin, Total 0.6 0.0-1.2 Alkaline Phosphatase, S 36 39-117 AST (SGOT) 16 0-40 ALT (SGPT) 20 0-44 PROCEDURES Procedure Date Ordered Related Diagnosis Body Site COMPLETE CBC W/AUTO DIFF WBC Jul 15, 2016 COMPREHEN METABOLIC PANEL Jul 15, 2016 VENIPUNCT, ROUTINE* Jul 15, 2016 LIPID PANEL Jul 15, 2016 IMMUNIZATIONS No Known Immunizations
--- OUTSIDE RECORDS SUMMARY | 2018-08-09 10:31 | XMS REPORT ---
Author Author RAFFI VAZQUEZ Organization [facility] Address [address] [place] [address] Care Team Providers Care Estimator Printing Plate Making Name Role Phone RAFFI VAZQUEZ Unavailable PROBLEMS Type Condition ICD9-CM Code TIC02-RR Code Onset Dates Condition Status SNOMED Code Problem Pain in joint, lower leg 719.46 Active 042807181 Problem Insomnia, unspecified 780.52 Active 788087320 Problem Uncontrolled type 2 diabetes mellitus without complication, without long-term current use of insulin E11.65 Active 718400089 Problem Lumbago with sciatica, left side M54.42 Active 594588164 Problem Hypertension 401.9 Active 54201879 Problem Carpal tunnel syndrome 354.0 Active 83037902 Problem Adult behavior problem F69 Active 626340276140501 Problem Other hyperlipidemia E78.4 Active 48995462 ALLERGIES Substance Reaction Event Type Date Status Omnicef Unknown Drug Allergy Sep, Active ENCOUNTERS Encounter Location Date Diagnosis [place] [address] [address] Jan, Uncontrolled type 2 diabetes mellitus without complication, without long-term current use of insulin E11.65 and Folliculitis L73.9 [place] [address] [place] [id number] [place] [address] Oct, Encounter for immunization Z23 [place] [address] [place] [id number] [place] [address] Oct, Uncontrolled type 2 diabetes mellitus without complication, without long-term current use of insulin E11.65 [place] [address] [place] [id number] [place] [address] Oct, [place] [address] [place] [id number] [place] [address] Sep, Uncontrolled type 2 diabetes mellitus without complication, without long-term current use of insulin E11.65 [facility] [address] [place] [id number] [place] [address] Apr, [facility] [address] [address] Mar, Lumbago with sciatica, left side M54.42 [facility] [address] [address] Dec, [facility] [address] [address] Sep, [facility] [address] [address] Sep, Adult behavior problem F69 [place] [address] [address] Jul, Encounter for immunization Z23 [facility] [address] [address] Jun, Tendonitis M77.9 and Hypertension, benign I10 [facility] [address] [address] Jun, Tendonitis M77.9 and Hypertension, benign I10 [facility] [address] [address] May, [facility] [address] [place] [id number] [place] [address] February, [facility] [address] [place] [id number] [place] [address] Nov, [facility] [address] [address] Oct, Hypert[address] 401.9 [facility] [address] [place] [id number] [place] [address] 08 Sep, 2015 Knee pain, left M25.562 [facility] [address] [place] [address] Sep, Upper respiratory tract infection, unspecified type J06.[address] [facility] [address] [place] [id number] [place] [address] Jul, [facility] [address] [place] [id number] [place] [address] Jul, [facility] [address] [address] Jul, [facility] [address] [place] [id number] [place] [address] Jul, Encounter for immunization Z23 [facility] [address] [place] [id number] [place] [address] 29 Jun, 2015 Knee pain, left 719.46 [facility] [address] [address] 28 Jun, [address] [facility] [address] [id number] [place] [address] 11 Jun, 2015 Left knee pain 719.46 [facility] [address] [id number] [place] [address] May, [facility] [address] [place] [id number] [place] [address] 14 Jan, 2015 [facility] [address] [place] [id number] [place] [address] Jan, [facility] [address] [place] [id number] [place] [address] Aug, [facility] [address] [id number] [place] [address] Aug, [facility] [address] [id number] [place] [address] Aug, [facility] [id number] [place] [address] Jul, [facility] [place] [facility] [address] [id number] [place] [address] Jul, [facility] [place] [facility] [address] [id number] [place] [address] Jul, [facility] [place] [facility] [address] [id number] [place] [address] Jul, [facility] [place] [facility] [address] [id number] [place] [address] Jul, [facility] [place] [facility] [address] [id number] [place] [address] Jul, [facility] [place] [facility] [address] [id number] [place] [address] Jun, [facility] [place] [facility] [address] [id number] [place] [address] Jun, [facility] [place] [facility] [address] [id number] [place] [address] Jun, [facility] [place] [facility] [address] [id number] [place] [address] Jun, [facility] [place] [facility] [address] [id number] [place] [address] May, [facility] [place] [facility] [address] [id number] [place] [address] May, [facility] [place] [facility] [address] [id number] [place] [address] May, [facility] [place] [facility] [address] [id number] [place] [address] May, [facility] [place] [facility] [address] [id number] [place] [address] May, [facility] [place] [facility] [address] [id number] [place] [address] May, [facility] [place] [facility] [address] [id number] [place] [address] Apr, [facility] [address] [id number] [place] [address] Apr, [facility] [place] [facility] [address] [id number] [place] [address] February, [facility] [place] [facility] [address] [id number] [place] [address] February, [facility] [place] [facility] [address] [id number] [place] [address] February, [facility] [place] [facility] [address] [id number] [place] [address] Jan, [facility] [place] [facility] [address] [id number] [place] [address] Nov, [facility] [place] [facility] [address] [id number] [place] [address] Nov, [facility] [place] [facility] [address] [id number] [place] [address] Oct, [facility] [place] [facility] [address] [id number] [place] [address] Sep, [facility] [place] [facility] [address] [id number] [place] Sep, [facility] [place] [facility] [address] [id number] [place] [address] Jul, [facility] [place] [facility] [address] [id number] [place] [address] Jul, [facility] [place] [facility] [address] [id number] [place] [address] Mar, [facility] [place] [facility] [address] [id number] [place] [address] Jan, [facility] [place] [facility] [address] [id number] [place] [address] Jan, [facility] [address] [facility] [id number] [place] [address] Dec, [facility] [address] [place] [id number] [address] Nov, [facility] [address] [facility] [id number] [place] [id number] Oct, [facility] [address] [address] Oct, [facility] [address] [facility] [id number] [address] Oct, [facility] [address] [address] Sep, [facility] [address] [place] [id number] [address] Sep, [facility] [address] [place] [address] [id number] [address] Jan, IMMUNIZATIONS No Known Immunizations SOCIAL HISTORY Never Assessed REASON FOR VISIT Hospital f/u-----Marifer, diagnosed with diabetes last Friday PLAN OF CARE Activity Details Follow Up 4 Weeks Reason:dm2 ooc VITAL SIGNS Height 80 in 2017-10-02 Weight 265 lbs 2017-10-02 Temperature 98.3 degrees Fahrenheit 2017-10-02 Heart Rate 80 bpm 2017-10-02 Respiratory Rate 20 2017-10-02 BMI 29.11 kg/m2 2017-10-02 Blood pressure systolic 132 mmHg 2017-10-02 Blood pressure diastolic 70 mmHg 2017-10-02 MEDICATIONS Medication Instructions Dosage Frequency Start Date End Date Duration Status Amlodipine Besylate 10 MG Orally Once a day 1 tablet 24h 90 Active Lisinopril-Hydrochlorothiazide 20-12.5 MG Orally Once a day 2 tablets 24h 90 Active Aspirin 81 MG 1 tablet by Oral route 1 time per day May, Active Fish Oil 1000 MG Orally Once a day 1 capsule 24h Active Pravastatin Sodium 10 MG Orally Once a day 1 tablet 24h 90 Active Glimepiride 4 MG Orally Once a day 1 tablet with breakfast or the first main meal of the day 24h Active Tramadol HCl 50 MG Orally every 6 hrs 1 tablet as needed 6h Jun, Not-Taking 5-Hydroxytryptophan 100 MG Orally Once a day 1 capsule with a meal 24h Jul, Not-Taking MetFORMIN HCl ER 500 mg Orally twice a day 2 tablets 12h Active RESULTS No Results PROCEDURES No Known procedures INSTRUCTIONS MEDICATIONS ADMINISTERED No Known Medications MEDICAL (GENERAL) HISTORY Type Description Date Medical History hypertension Medical History hyperlipidemia Surgical History right ACL repair x2 Surgical History vasectomy Surgical History left foot surgery Surgical History cyst removed; right arm Surgical History pylonidol cyst Hospitalization History surgeries Hospitalization History mennangitis(spinal) 2001 Hospitalization History [place] 09/2017
--- OUTSIDE RECORDS SUMMARY | 2018-08-09 10:32 | XMS REPORT ---
Author EMI Villavicencio [employer] Address Unknown Phone Unavailable Care Team Providers Care Brain Picker Name Role Phone EMI PEREYRA CP Unavailable Allergies, Adverse Reactions, Alerts Substance Reaction Event Type Omnicef Info Not Available Drug Allergy Problems Problem Type Condition Code Onset Dates Condition Status Problem Hypertension 401.9 Active Problem Insomnia, unspecified 780.52 Active Problem Other hyperlipidemia E78.4 Active Assessment Upper respiratory tract infection, unspecified type J06.9 Active Assessment Cough R05 Active Problem Carpal tunnel syndrome 354.0 Active Problem Pain in joint, lower leg 719.46 Active Medications Medication Code System Code Instructions Start Date End Date Status Dosage 5-Hydroxytryptophan ND 0 100 MG Orally Once a day Aug 04, 2015 1 capsule with a meal Lisinopril-Hydrochlorothiazide [facility] [address]-26 20-12.5 MG Orally Once a day 2 tablets Azithromycin [facility] [address]-44 250 MG Orally Once a day Sep 21, 2015 Sep 26, 2015 2 tablets on the first day, then 1 tablet daily for 4 days Mucinex DM [facility] [address]-54 30-600 MG Orally every 12 hrs Sep 21, 2015 Oct 05, 2015 1 tablet as needed Amlodipine Besylate [facility] [address]-31 10 MG Orally Once a day 1 tablet Tramadol HCl [facility] [address]-56 50 MG Orally every 6 hrs Jun 30, 2015 1 tablet as needed Aspirin [facility] [address]-29 81 mg Jun 06, 2014 1 tablet by Oral route 1 time per day Pravastatin Sodium [facility] [address]-17 10 MG Orally Once a day 1 tablet Tessalon Perles [facility] [address]-24 100 MG Orally Three times a day Sep 21, 2015 Sep 28, 2015 1 capsule as needed Fish Oil [facility] [address]-90 1000 MG Orally Once a day 1 capsule Procedures Procedure Coding System Code Date Office Visit, Est Pt., Level 3 CPT-4 21337 Sep 21, 2015 STREP A ASSAY W/OPTIC CPT-4 00326 Sep 21, 2015 Vital Signs Date/Time: Sep 21, 2015 Temperature 97.9 F Weight 285.9 lbs Height 80 in BMI 31.40 Index Blood Pressure Diastolic 78 mmHg Blood Pressure Systolic 126 mmHg Cardiac Monitoring Heart Rate 80 bpm Results Name Result Date Reference Range Unit Abnormality Flag STREP A (IN HOUSE) ----STREP A Negative [id number] ----Control Positive [id number] ----Lot # [id number] ----Exp date 09/18/201620150921 Summary Purpose [employer] Submission
--- OUTSIDE RECORDS SUMMARY | 2018-08-09 10:32 | XMS REPORT ---
Author Author GONZALEZ RYAN [facility] [employer] Address Unknown Phone Unavailable Care Team Providers Care Plant Propagator Name Role Phone GONZALEZ RYAN Unavailable Allergies No Known Allergies Problems Problem [...] Instructions Start Date End Date Status Dosage Flagyl [facility] [address]-66 500 MG Orally every 8 hrs Aug 18, 2015 Aug 28, 2015 1 tablet Results No Known Results Summary Purpose [employer]Clinical[employer] Submission
--- OUTSIDE RECORDS SUMMARY | 2018-08-09 10:32 | XMS REPORT ---
Author Author RAFFI VAZQUEZ Organization [employer] Address Unknown Phone Unavailable Care Team Providers Care Plant Sciences Professor Name Role Phone RAFFI VAZQUEZ CP Unavailable [...] Date End Date Status Dosage Pravastatin Sodium [facility] [address]-49 10 MG Orally Once a day 1 tablet Amlodipine Besylate [facility] [address]-95 10 MG Orally Once a day 1 tablet Results No Known Results Summary Purpose [employer]Clinical[employer] Submission
--- OUTSIDE RECORDS SUMMARY | 2018-08-09 10:32 | XMS REPORT ---
Author Author RAFFI VAZQUEZ Organization [facility] Address [address] [place] [address] Care Team Providers Care Stock Sorter Name Role Phone RAFFI VAZQUEZ Unavailable PROBLEMS Type Condition ICD9-CM Code WVN52-LF Code Onset Dates Condition Status SNOMED Code Problem Pain in joint, lower leg 719.46 Active 348668740 Problem Insomnia, unspecified 780.52 Active 486535273 Problem Uncontrolled type 2 diabetes mellitus without complication, without long-term current use of insulin E11.65 Active 722445494 Problem Lumbago with sciatica, left side M54.42 Active 086073596 Problem Hypertension 401.9 Active 17747233 Problem Carpal tunnel syndrome 354.0 Active 46525708 Problem Adult behavior problem F69 Active 123249370456362 Problem Other hyperlipidemia E78.4 Active 70508161 ALLERGIES Substance Reaction Event Type Date Status Omnicef Unknown Drug Allergy Oct, Active ENCOUNTERS Encounter Location Date Diagnosis [place] [address] [address] Jan, Uncontrolled type 2 diabetes mellitus without complication, without long-term current use of insulin E11.65 and Folliculitis L73.9 [place] [address] [place] [id number] [place] [address] 21548- 8785 Oct, Encounter for immunization Z23 [place] [address] [place] [id number] [place] [address] 83109- 4443 Oct, Uncontrolled type 2 diabetes mellitus without complication, without long-term current use of insulin E11.65 [place] [address] [place] [id number] [place] [address] 51226- 1848 Oct, [place] [address] [place] [id number] [place] [address] 55692- 7997 Sep, Uncontrolled type 2 diabetes mellitus without complication, without long-term current use of insulin E11.65 [facility] [address] [id number] [place] [address] 11142- 9466 Apr, [facility] [address] [address] Mar, Lumbago with sciatica, left side M54.42 [facility] [address] [address]- 9483 Dec, [facility] [address] 22553- 0120 Sep, [facility] [address] 36039- 7439 Sep, Adult behavior problem F69 [place] [address] [address]- 8380 Jul, Encounter for immunization Z23 [facility] [address] 21428- 7511 Jun, Tendonitis M77.9 and Hypertension, benign I10 [facility] [address] 00007- 4524 Jun, Tendonitis M77.9 and Hypertension, benign I10 [facility] [address] 86196- 5636 May, [facility] [address] [place] [id number] [place] [address] 70715- 7264 February, [facility] [address] [place] [id number] [place] [address] 45205- 4715 Nov, [facility] [address] 7[address]- 2288 Oct, Hypertension 401.9 [facility] [address] [place] [id number] [place] [address] 16198- 9759 08 Sep, 2015 Knee pain, left M25.562 [facility] [address] [place] [address] Sep, Upper respiratory tract infection, unspecified type J06.9 and Cough R05 [facility] [address] [place] [id number] [place] [address] 68689- 3023 Jul, [facility] [address] [place] [id number] [place] [address] 85590- 1205 Jul, [facility] [address] 19326- 2056 Jul, [facility] [address] [place] [id number] [place] [address] 35268- 9234 Jul, Encounter for immunization Z23 [facility] [address] [place] [id number] [place] [address] 22662- 7764 29 Jun, 2015 Knee pain, left 719.46 [facility] [address] 00583- 8570 28 Jun, 2015 Hypertension 401.9 [facility] [address] [place] [id number] [place] [address] 36751- 0041 11 Jun, 2015 Left knee pain 719.46 [facility] [address] [place] [id number] [place] [address] 53384- 1800 May, [facility] [address] [place] [id number] [place] [address] 86534- 9778 14 Jan, 2015 [facility] [address] [place] [id number] [place] [address] 89667- 0272 Jan, [facility] [address] [place] [id number] [place] [address] 40593- 5217 Aug, [facility] [address] [place] [id number] [place] [address] 91098- 1632 Aug, [facility] [address] [place] [id number] [place] [address] 242661- 5570 Aug, [facility] [address] [place] [id number] [place] [address] 56844- 9873 Jul, [facility] [place] [facility] [address] [id number] [place] [address]- 2315 Jul, [facility] [place] [facility] [address] [id number] [place] [address]- 3053 Jul, [facility] [place] [facility] [address] [id number] [place] [address]- 7583 Jul, [facility] [place] [facility] [address] [id number] [place] [address]- 7730 Jul, [facility] [place] [facility] [address] [id number] [place] [address]- 8705 Jul, [facility] [place] [facility] [address] [id number] [place] [address]- 6414 Jun, [facility] [place] [facility] [address] [id number] [place] [address]- 5122 Jun, [facility] [place] [facility] [address] [id number] [place] [address]- 7197 Jun, [facility] [place] [facility] [address] [id number] [place] [address]- 2013 Jun, [facility] [place] [facility] [address] [id number] [place] [address]- 7888 May, [facility] [place] [facility] [address] [id number] [address]- 8952 May, [facility] [place] [facility] [address] [id number] [address]- 4557 May, [facility] [place] [facility] [address] [id number] [place] [address]- 7869 May, [facility] [place] [facility] [address] [id number] [place] [address]- 6964 May, [facility] [place] [facility] [address] [id number] [place] [address]- 9493 May, [facility] [place] [facility] [address] [id number] [place] [address]- 0932 Apr, [facility] [address] [id number] [place] [address]- 5403 Apr, [facility] [place] [facility] [address] [id number] [place] [address]- 2253 February, [facility] [place] [facility] [address] [id number] [place] [address]- 6022 February, [facility] [place] [facility] [address] [id number] [place] [address]- 9506 February, [facility] [place] [facility] [address] [id number] [place] [address]- 7836 Jan, [facility] [place] [facility] [address] [id number] [place] [address]- 2713 Nov, [facility] [place] [facility] [address] [id number] [place] [address]- 4146 Nov, [facility] [place] [facility] [address] [id number] [place] [address]- 6560 Oct, [facility] [place] [facility] [address] [id number] [place] [address]- 6415 Sep, [facility] [place] [facility] [address] [id number] [place] [address] Sep, [facility] [place] [facility] [address] [id number] [place] [address]- 7729 Jul, [facility] [place] [facility] [address] [id number] [place] [address]- 2548 Jul, [facility] [place] [facility] [address] [id number] [place] [address]- 1594 Mar, [facility] [place] [facility] [address] [id number] [place] [address]- 7026 Jan, [facility] [place] [facility] [address] [id number] [place] [address]- 8905 Jan, [facility] [address] [facility] [id number] [place] [address]- 2546 Dec, [facility] [address] [facility] [id number] [place] [address]- 2546 Nov, [facility] [address] [facility] [id number] [place] [id number] Oct, [facility] [address] [facility] [id number] [place] [address] 2546 Oct, [facility] [address] [facility] [id number] [place] [address]- 2546 Oct, [facility] [address] [facility] [id number] [place] [address] 2546 Sep, [facility] [address] [id number] [address] 2546 Sep, [facility] [address] [facility] [id number] [place] [address] 2546 Jan, IMMUNIZATIONS No Known Immunizations SOCIAL HISTORY Never Assessed REASON FOR VISIT Diabetes- Deedee Neves RN- Last A1c was 09/27 in hospital- Deedee Neves RN PLAN OF CARE Activity Details Follow Up 4 Weeks Reason:dm2 ooc VITAL SIGNS Height 80 in 2017-11-13 Weight 262 lbs 2017-11-13 Temperature 98.8 degrees Fahrenheit 2017-11-13 Heart Rate 82 bpm 2017-11-13 Respiratory Rate 18 2017-11-13 BMI 28.78 kg/m2 2017-11-13 Blood pressure systolic 132 mmHg 2017-11-13 Blood pressure diastolic 78 mmHg 2017-11-13 MEDICATIONS Medication Instructions Dosage Frequency Start Date End Date Duration Status Fish Oil 1000 MG Orally Once a day 1 capsule 24h Active Glimepiride 4 MG Orally Once a day 1 tablet with breakfast or the first main meal of the day 24h Active Lisinopril-Hydrochlorothiazide 20-12.5 MG Orally Once a day 2 tablets 24h 90 Active Farxiga 10 mg Orally Once a day 1 tablet 24h Oct, Active Aspirin 81 MG 1 tablet by Oral route 1 time per day May, Active Amlodipine Besylate 10 MG Orally Once a day 1 tablet 24h 90 Active Pravastatin Sodium 10 MG Orally Once a day 1 tablet 24h 90 Active MetFORMIN HCl ER 500 mg Orally [...] surgeries Hospitalization History mennangitis(spinal) 2001 Hospitalization History DKA-[facility] 09/2017
--- OUTSIDE RECORDS SUMMARY | 2018-08-09 10:32 | XMS REPORT ---
Author Author RAFFI VAZQUEZ Organization [facility] Address [address] [place] [address] Care Team Providers Care I&C Technician Name Role Phone RAFFI VAZQUEZ Unavailable PROBLEMS Type Condition ICD9-CM Code OMQ53-SG Code Onset Dates Condition Status SNOMED Code Problem Pain in joint, lower leg 719.46 Active 329450411 Problem Insomnia, unspecified 780.52 Active 390934679 Problem Uncontrolled type 2 diabetes mellitus without complication, without long-term current use of insulin E11.65 Active 407213230 Problem Lumbago with sciatica, left side M54.42 Active 299635330 Problem Hypertension 401.9 Active 03669287 Problem Carpal tunnel syndrome 354.0 Active 27886450 Problem Adult behavior problem F69 Active 325610206181529 Problem Other hyperlipidemia E78.4 Active 74262180 ALLERGIES No Information ENCOUNTERS Encounter Location Date Diagnosis [place] [address] [address]- [address] Jan, Uncontrolled type 2 diabetes mellitus without complication, without long-term current use of insulin E11.65 and Folliculitis L73.9 [place] [address] 89502- 5356 Oct, Encounter for immunization Z23 [place] [address] 21093- 4809 Oct, Uncontrolled type 2 diabetes mellitus without complication, without long-term current use of insulin E11.65 [place] [address] 87635- 4924 Oct, [place] [address] 24191- 8393 Sep, Uncontrolled type 2 diabetes mellitus without complication, without long-term current use of insulin E11.65 [place] [address] [place] [id number] [place] [address] 56992- 3322 Apr, [facility] [address] [place] [id number] [place] [address] 00148 -5044 Mar, Lumbago with sciatica, left side M54.42 [facility] [address] [place] [id number] [place] [address] 80430- 6562 Dec, [facility] [address] 81574- 0004 Sep, [facility] [address] 86426- 3162 Sep, Adult behavior problem F69 [facility] [address] 73617- 4686 Jul, Encounter for immunization Z23 [facility] [address] 86687- 6446 Jun, Tendonitis M77.9 and Hypertension, benign I10 [facility] [address] [place] [id number] [place] [address] 84191- 5454 Jun, Tendonitis M77.9 and Hypertension, benign I10 [facility] [address] [place] [id number] [place] [address] 70778- 8529 May, [facility] [address] [place] [id number] [place] [address] 28359- 5422 February, [facility] [address] [place] [id number] [place] [address] 11474- 2813 Nov, [facility] [address] [place] [id number] [place] [address] 44050- 6918 Oct, Hypertension 401.9 [facility] [address] [place] [id number] [place] [address] 19153- 6021 08 Sep, 2015 Knee pain, left M25.562 [facility] [address] [place] [id number] [place] [address] 85077- 1680 Sep, Upper respiratory tract infection, unspecified type J06.9 and Cough R05 [facility] [address] [address]- 4612 Jul, [facility] [address] [place] [id number] [place] [address] 31971- 4348 Jul, [facility] [address] [place] [id number] [place] [address] 75895- 8007 Jul, [facility] [address] [place] [id number] [place] [address] 39974- 2975 Jul, Encounter for immunization Z23 [facility] [address] [place] [id number] [place] [address] 21053- 8694 29 Jun, 2015 Knee pain, left 719.46 [facility] [address] [place] [id number] [place] [address] 30060- 3570 28 Jun, 2015 Hypertension 401.9 [facility] [address] [place] [id number] [place] [address] 24761- 8102 11 Jun, 2015 Left knee pain 719.46 [facility] [address] [place] [id number] [place] [address] 80788- 9435 May, [facility] [address] [place] [id number] [place] [address] 90152- 7624 Jan, [facility] [address] [address]- 1909 Jan, [facility] [address] [place] [id number] [place] [address] 78051- 9403 Aug, [facility] [address] [place] [address] 10092- 1686 Aug, [facility] [address] [place] [id number] [place] [address] 68032- 3050 Aug, [facility] [address] [address]- 6065 Jul, [facility] [address] [address]- 1671 Jul, [facility] [place] [facility] [address] [id number] [place] [address]- 9201 Jul, [facility] [place] [facility] [address] [id number] [place] [address]- 4049 Jul, [facility] [place] [facility] [address] [id number] [place] [address]- 8523 Jul, [facility] [place] [facility] [address] [id number] [place] [address]- 2871 Jul, [facility] [place] [facility] [address] [id number] [place] [address]- 0836 Jun, [facility] [place] [facility] [address] [id number] [place] [address]- 7781 Jun, [facility] [place] [facility] [address] [id number] [place] [address]- 0812 Jun, [facility] [place] [facility] [address] [id number] [place] [address]- 1933 Jun, [facility] [place] [facility] [address] [id number] [place] [address]- 0018 May, [facility] [place] [facility] [address] [id number] [place] [address]- 6108 May, [facility] [place] [facility] [address] [id number] [place] [address]- 9765 May, [facility] [place] [facility] [address] [id number] [place] [address]- 6356 May, [facility] [place] [facility] [address] [id number] [place] [address]- 3861 May, [facility] [place] [facility] [address] [id number] [place] [address]- 5855 May, [facility] [place] [facility] [address] [id number] [place] [address]- 4359 Apr, [facility] [address] [id number] [place] [address]- 7790 Apr, [facility] [place] [facility] [address] [id number] [place] [address]- 8628 February, [facility] [address] [id number] [place] 8485 February, [facility] [place] [facility] [address] [id number] [place] [address]- 9276 February, [facility] [address] [id number] [place] [address]40 Jan, [facility] [place] [facility] [address] [id number] [place] 9592 Nov, [facility] [place] [facility] [address] [id number] [place] [address]- 0032 Nov, [facility] [place] [facility] [address] [id number] [place] [address]- 4080 Oct, [facility] [place] [facility] [address] [id number] [place] [address]- 1694 Sep, [facility] [place] [facility] [address] [id number] [place] [address]- 2457 Sep, [facility] [place] [facility] [address] [id number] [place] [address]- 6308 Jul, [facility] [place] [facility] [address] [id number] [place] [address]- 1040 Jul, [facility] [place] [facility] [address] [id number] [place] [address]- 8512 Mar, [facility] [place] [facility] [address] [id number] [place] [address]- 0386 Jan, [facility] [place] [facility] [address] [id number] [place] [address]- 2148 Jan, [facility] [place] [facility] [address] [place] [id number] [address]- 2546 Dec, [facility] [address] [id number] [address]- 2546 Nov, [facility] [address] [place] [id number] [address] Oct, [facility] [address] [address]- 2546 Oct, [facility] [address] [address]- 2546 Oct, [facility] [address] [address] 2546 Sep, [facility] [address] [address] 2546 Sep, [facility] [address] [place] [address] [id number] [address]- 8336 Jan, IMMUNIZATIONS Vaccine Route Administration Date Status FLUARIX QUAD (3 AND UP) 2016 IM Intramuscular Nov 13, 2017 Administered SOCIAL HISTORY Never Assessed REASON FOR VISIT Flu shot- Deedee Neves RN PLAN OF CARE VITAL SIGNS MEDICATIONS No Known Medications RESULTS No Results PROCEDURES Procedure Date Ordered Result Body Site FLUARIX QUAD (3 AND UP) 2016Nov 13, 2017 SINGLE IMMUNIZATION ADMIN Nov 13, 2017 INSTRUCTIONS MEDICATIONS ADMINISTERED No Known Medications MEDICAL (GENERAL) HISTORY Type Description Date Medical History hypertension Medical History hyperlipidemia Surgical History right ACL repair x2 Surgical History vasectomy Surgical History left foot surgery Surgical History cyst removed; right arm Surgical History pylonidol cyst Hospitalization History surgeries Hospitalization History mennangitis(spinal) 2001 Hospitalization History DKA-[facility] 09/2017
--- OUTSIDE RECORDS SUMMARY | 2018-08-09 10:32 | XMS REPORT ---
Author Author JASBIR BURGOS Organization [facility] Address [address] [place] [address] Care Team Providers Care Welt Trimming Machine Operator Name Role Phone JASBIR BURGOS Unavailable PROBLEMS Type Condition ICD9-CM Code IAZ20-RD Code Onset Dates Condition Status SNOMED Code Problem Pain in joint, lower leg 719.46 Active 337227803 Problem Lumbago with sciatica, left side M54.42 Active 218187087 Problem Adult behavior problem F69 Active 014289360431023 Problem Insomnia, unspecified 780.52 Active 107233247 Problem Carpal tunnel syndrome 354.0 Active 29595842 Problem Other hyperlipidemia E78.4 Active 03698612 Problem Hypertension 401.9 Active 98550030 ALLERGIES Unknown Allergies SOCIAL HISTORY No smoking Hx information available PLAN OF CARE Activity Details Follow Up prn Reason: VITAL SIGNS MEDICATIONS Unknown Medications RESULTS No Results PROCEDURES Procedure Date Ordered Related Diagnosis Body Site Psychotherapy, patient &/family, 45 minutes, established patient Oct 10, 2016 IMMUNIZATIONS No Known Immunizations
--- OUTSIDE RECORDS SUMMARY | 2018-08-09 10:32 | XMS REPORT ---
Author RAFFI Mari Organization [employer] Address Unknown Phone Unavailable Care Team Providers Care Net Sql Developer Name Role Phone RAFFI VAZQUEZ CP Unavailable Allergies No Known Allergies Problems Problem Type Condition Code Onset Dates Condition Status Problem Hypertension 401.9 Active Problem Insomnia, unspecified 780.52 Active Problem Other hyperlipidemia E78.4 Active Assessment Encounter for immunization Z23 Active Problem Carpal tunnel syndrome 354.0 Active Problem Pain in joint, lower leg 719.46 Active Medications No Known Medications Procedures Procedure Coding System Code Date SINGLE IMMUNIZATION ADMIN CPT-4 94910 Jul 29, 2016 FLUARIX QUAD P-FREE 3 AND UP .50 2015 CPT-4 92386 Jul 29, 2016 Results No Known Results Immunizations Vaccine Administration Date FLUARIX QUAD P-FREE 3 AND UP .50 2015Jul 29, 2016 Summary Purpose [employer] Submission
--- OUTSIDE RECORDS SUMMARY | 2018-08-09 10:32 | XMS REPORT ---
Author Author RAFFI VAZQUEZ [facility] Address [address] [place] [address] Care Team Providers Care Mechanical Energy Engineer Name Role Phone RAFFI VAZQUEZ Unavailable PROBLEMS Type Condition ICD9-CM Code HAB68-ML Code Onset Dates Condition Status SNOMED Code Problem Pain in joint, lower leg 719.46 Active 915966319 Problem Lumbago with sciatica, left side M54.42 Active 036700523 Problem Adult behavior problem F69 Active 602487394650627 Problem Insomnia, unspecified 780.52 Active 574306590 Problem Carpal tunnel syndrome 354.0 Active 10176066 Problem Other hyperlipidemia E78.4 Active 77075355 Problem Hypertension 401.9 Active 35949671 ALLERGIES Unknown Allergies SOCIAL HISTORY No smoking Hx information available PLAN OF CARE VITAL SIGNS MEDICATIONS Medication Instructions Dosage Frequency Start Date End Date Duration Status Lisinopril-Hydrochlorothiazide 20-12.5 MG Orally Once a day 2 tablets 24h Active Pravastatin Sodium 10 MG Orally Once a day 1 tablet 24h Active Amlodipine Besylate 10 MG Orally Once a day 1 tablet 24h Active RESULTS No Results PROCEDURES No Known procedures IMMUNIZATIONS No Known Immunizations
--- OUTSIDE RECORDS SUMMARY | 2018-08-09 10:32 | XMS REPORT ---
Author RAFFI Mari Organization [employer] Address Unknown Phone Unavailable Care Team Providers Care Manager Strategic Name Role Phone RAFFI VAZQUEZ CP Unavailable Allergies No Known Allergies Problems Problem Type Condition Code Onset Dates Condition Status Assessment Encounter for immunization Z23 Active Problem Pain in joint, lower leg [...] pain, other specified site 789.09 Active Medications No Known Medications Procedures Procedure Coding System Code Date SINGLE IMMUNIZATION ADMIN CPT-4 97124 Jul 25, 2015 FLUARIX QUAD (3 & UP)-GSK-2014 CPT-4 38360 Jul 25, 2015 Results No Known Results Immunizations Vaccine Administration Date FLUARIX QUAD (3 & UP)-GSK-2014Jul 25, 2015 Summary Purpose [employer] Submission
--- OUTSIDE RECORDS SUMMARY | 2018-08-09 10:32 | XMS REPORT ---
Author RAFFI Mari Organization [employer] Address Unknown Phone Unavailable Care Team Providers Care Recreation Engineer Name Role Phone RAFFI VAZQUEZ CP Unavailable Allergies, Adverse Reactions, Alerts Substance Reaction Event Type Omnicef Info Not Available Drug Allergy Problems Problem Type Condition Code Onset Dates Condition Status Problem Hypertension 401.9 Active Problem Insomnia, unspecified 780.52 Active Problem Other hyperlipidemia E78.4 Active Assessment Knee pain, left M25.562 Active Problem Carpal tunnel syndrome 354.0 Active Problem Pain in joint, lower leg 719.46 Active Medications Medication Code System Code Instructions Start Date End Date Status Dosage Lisinopril-Hydrochlorothiazide [facility] [address]-50 20-12.5 MG Orally Once a day 2 tablets Fish Oil [facility] [address]-02 1000 MG Orally Once a day 1 capsule Amlodipine Besylate [facility] [address]-92 10 MG Orally Once a day 1 tablet Pravastatin Sodium [facility] [address]-30 10 MG Orally Once a day 1 tablet Tramadol HCl [facility] [address]-10 50 MG Orally every 6 hrs Jun 30, 2015 1 tablet as needed Tessalon Perles [facility] [address]-10 100 MG Orally Three times a day Sep 21, 2015 Sep 28, 2015 1 capsule as needed 5-Hydroxytryptophan ND 0 100 MG Orally Once a day Aug 04, 2015 1 capsule with a meal Aspirin [facility] [address]-41 81 mg Jun 06, 2014 1 tablet by Oral route 1 time per day Procedures Procedure Coding System Code Date DRAIN/INJECT, JOINT/BURSA CPT-4 38894 Sep 26, 2015 Vital Signs Date/Time: Sep 26, 2015 Temperature 97.0 F Weight 282.2 lbs Height 80 in BMI 31.00 Index Blood Pressure Diastolic 80 mmHg Blood Pressure Systolic 130 mmHg Cardiac Monitoring Heart Rate 90 bpm Results No Known Results Summary Purpose [employer] Submission
--- OUTSIDE RECORDS SUMMARY | 2018-08-09 10:32 | XMS REPORT ---
Author Author RAFFI VAZQUEZ Organization [employer] Address Unknown Phone Unavailable Care Team Providers Care Foreclosure Field Inspector Name Role Phone RAFFI VAZQUEZ CP Unavailable Allergies No Known Allergies Problems Problem Type Condition Code Onset Dates Condition Status Problem Hypertension 401.9 Active Problem Insomnia, unspecified 780.52 Active Problem Other hyperlipidemia E78.4 Active Problem Carpal tunnel syndrome 354.0 Active Problem Pain in joint, lower leg 719.46 Active Medications Medication Code System Code Instructions Start Date End Date Status Dosage Pravastatin Sodium [facility] [address]-09 10 MG Orally Once a day 1 tablet Lisinopril-Hydrochlorothiazide [facility] [address]-32 20-12.5 MG Orally Once a day 2 tablets Amlodipine Besylate [facility] [address]-45 10 MG Orally Once a day 1 tablet Results No Known Results Summary Purpose [employer] Submission
--- OUTSIDE RECORDS SUMMARY | 2018-08-09 10:33 | XMS REPORT | Continuity of Care Document ---
Author Author [facility] Address Unknown Phone Unavailable Allergies Active Description Code Type Severity Reaction Onset Reported/Identified Relationship to Patient Clinical Status Yes Omnicef Drug Allergy 02/11/2012 Yes Omnicef Drug Allergy N/A N/A 02/11/2012 Medications There is no data. Problems Date Dx Coded Attending Type Code Diagnosis Diagnosed By 01/08/2010 TICO CASSIDY APRN 311 DEPRESSIVE DISORDER NOS 01/08/2010 TICO CASSIDY APRN S 401.1 HYPERTENSION, BENIGN ESSENTIAL 01/08/2010 JAYLEN GREENE MD 311 DEPRESSIVE DISORDER NOS 01/08/2010 JAYLEN GREENE MD 401.1 HYPERTENSION, BENIGN ESSENTIAL 01/08/2010 MOYER DO, WESLEY K 311 DEPRESSIVE DISORDER NOS 01/08/2010 MOYER DO, WESLEY K 401.1 HYPERTENSION, BENIGN ESSENTIAL 01/08/2010 PARKER ALY APRNIA R 311 DEPRESSIVE DISORDER NOS 01/08/2010 JESUS ALY APRN R 401.1 HYPERTENSION, BENIGN ESSENTIAL 01/08/2010 GEORGE MEDINA RAFFI T 311 DEPRESSIVE DISORDER NOS 01/08/2010 RAFFI VAZQUEZ APRN 401.1 HYPERTENSION, BENIGN ESSENTIAL 01/08/2010 MOYER DO, WESLEY K 311 DEPRESSIVE DISORDER NOS 01/08/2010 MOYER DO, WESLEY K 401.1 HYPERTENSION, BENIGN ESSENTIAL 01/08/2010 MOYER DO, WESLEY K 311 DEPRESSIVE DISORDER NOS 01/08/2010 MOYER DO, WESLEY K 401.1 HYPERTENSION, BENIGN ESSENTIAL 01/08/2010 PARKER ALY APRNIA R 311 DEPRESSIVE DISORDER NOS 01/08/2010 JESUS ALY APRN R 401.1 HYPERTENSION, BENIGN ESSENTIAL 01/08/2010 MOYER DO, WESLEY K 311 DEPRESSIVE DISORDER NOS 01/08/2010 MOYER DO, WESLEY K 401.1 HYPERTENSION, BENIGN ESSENTIAL 02/06/2010 TICO CASSIDY APRN 346.90 MIGRAINE UNSPECIFIED WITHOUT INTRACTABLE MIGRAINE 02/06/2010 JAYLEN GREENE MD 346.90 MIGRAINE UNSPECIFIED WITHOUT INTRACTABLE MIGRAINE 02/06/2010 MOYER , WESLEY K 346.90 MIGRAINE UNSPECIFIED WITHOUT INTRACTABLE MIGRAINE 02/06/2010 JESUS ALY APRN 346.90 MIGRAINE UNSPECIFIED WITHOUT INTRACTABLE MIGRAINE 02/06/2010 RAFFI VAZQUEZ APRN 346.90 MIGRAINE UNSPECIFIED WITHOUT INTRACTABLE MIGRAINE 02/06/2010 MOYER DO, WESLEY K 346.90 MIGRAINE UNSPECIFIED WITHOUT INTRACTABLE MIGRAINE 02/06/2010 MOYER DO, WESLEY K 346.90 MIGRAINE UNSPECIFIED WITHOUT INTRACTABLE MIGRAINE 02/06/2010 JESUS ALY APRN R 346.90 MIGRAINE UNSPECIFIED WITHOUT INTRACTABLE MIGRAINE 02/06/2010 MOYER DO, WESLEY K 346.90 MIGRAINE UNSPECIFIED WITHOUT INTRACTABLE MIGRAINE 10/21/2011 TICO CASSIDY APRN S V04.81 FLU DX (3 YRS AND ABOVE, IM) 10/21/2011 JAYLEN GREENE MD V04.81 FLU DX (3 YRS AND ABOVE, IM) 10/21/2011 MOYER DO, WESLEY K V04.81 FLU DX (3 YRS AND ABOVE, IM) 10/21/2011 JESUS ALY APRN R V04.81 FLU DX (3 YRS AND ABOVE, IM) 10/21/2011 RAFFI VAZQUEZ APRN V04.81 FLU DX (3 YRS AND ABOVE, IM) 10/21/2011 MOYER DO, WESLEY K V04.81 FLU DX (3 YRS AND ABOVE, IM) 10/21/2011 MOYER DO, WESLEY K V04.81 FLU DX (3 YRS AND ABOVE, IM) 10/21/2011 JESUS ALY APRN R V04.81 FLU DX (3 YRS AND ABOVE, IM) 10/21/2011 MOYER DO, WESLEY K V04.81 FLU DX (3 YRS AND ABOVE, IM) 01/08/2012 TICO CASSIDY APRN S 354.0 CARPAL TUNNEL SYNDROME 01/08/2012 JAYLEN GREENE MD 354.0 CARPAL TUNNEL SYNDROME 01/08/2012 MOYER , WESLEY K 354.0 CARPAL TUNNEL SYNDROME 01/08/2012 JESUS ALY APRN 354.0 CARPAL TUNNEL SYNDROME 01/08/2012 RAFFI VAZQUEZ APRN 354.0 CARPAL TUNNEL SYNDROME 01/08/2012 MOYER , WESLEY K 354.0 CARPAL TUNNEL SYNDROME 01/08/2012 MOYER DO, WESLEY K 354.0 CARPAL TUNNEL SYNDROME 01/08/2012 JESUS ALY APRN R 354.0 CARPAL TUNNEL SYNDROME 01/08/2012 MOYER DO, WESLEY K 354.0 CARPAL TUNNEL SYNDROME 01/21/2013 JAYLEN GREENE MD V70.0 ROUTINE GENERAL MEDICAL EXAMINATION AT A HEALTH CARE FACILITY 01/21/2013 MOYER DO, WESLEY K V70.0 ROUTINE GENERAL MEDICAL EXAMINATION AT A HEALTH CARE FACILITY 01/21/2013 JESUS ALY APRN V70.0 ROUTINE GENERAL MEDICAL EXAMINATION AT A HEALTH CARE FACILITY 01/21/2013 RAFFI VAZQUEZ APRN V70.0 ROUTINE GENERAL MEDICAL EXAMINATION AT A HEALTH CARE FACILITY 01/21/2013 MOYER DO, WESLEY K V70.0 ROUTINE GENERAL MEDICAL EXAMINATION AT A HEALTH CARE FACILITY 01/21/2013 MOYER DO, WESLEY K V70.0 ROUTINE GENERAL MEDICAL EXAMINATION AT A HEALTH CARE FACILITY 01/21/2013 EJSUS ALY APRN R V70.0 ROUTINE GENERAL MEDICAL EXAMINATION AT A HEALTH CARE FACILITY 01/21/2013 MOYER DO, WESLEY K V70.0 ROUTINE GENERAL MEDICAL EXAMINATION AT A HEALTH CARE FACILITY 06/06/2014 MOYER DO, WESLEY K 272.4 DYSLIPIDEMIA 06/06/2014 JESUS ALY APRN R 272.4 DYSLIPIDEMIA 06/06/2014 RAFFI VAZQUEZ APRN 272.4 DYSLIPIDEMIA 06/06/2014 MOYER DO, WESLEY K 272.4 DYSLIPIDEMIA 06/06/2014 MOYER DO, WESLEY K 272.4 DYSLIPIDEMIA 06/06/2014 JESUS ALY APRN R 272.4 DYSLIPIDEMIA 06/06/2014 MOYER DO, WESLEY K 272.4 DYSLIPIDEMIA 06/13/2014 JESUS ALY APRN R 558.9 GASTROENTERITIS NONINFECTIOUS 06/13/2014 RAFFI VAZQUEZ APRN 558.9 GASTROENTERITIS NONINFECTIOUS 06/13/2014 MOYER DO, WESLEY K 558.9 GASTROENTERITIS NONINFECTIOUS 06/13/2014 MOYER DO, WELSEY K 558.9 GASTROENTERITIS NONINFECTIOUS 06/13/2014 JESUS ALY APRN R 558.9 GASTROENTERITIS NONINFECTIOUS 06/13/2014 MOYER DO, WESLEY K 558.9 GASTROENTERITIS NONINFECTIOUS 06/29/2014 RAFFI VAZQUEZ APRN 789.09 ABDOMINAL PAIN OTHER SPECIFIED SITE 06/29/2014 WESLEY MOYER DO 789.09 ABDOMINAL PAIN OTHER SPECIFIED SITE 06/29/2014 WESLEY OMYER DO 789.09 ABDOMINAL PAIN OTHER SPECIFIED SITE 06/29/2014 JESUS ALY APRN 789.09 ABDOMINAL PAIN OTHER SPECIFIED SITE 06/29/2014 WESLEY MOYER DO 789.09 ABDOMINAL PAIN OTHER SPECIFIED SITE 08/10/2014 JESUS ALY APRN 719.46 PAIN IN JOINT INVOLVING LOWER LEG 08/10/2014 WESLEY MOYER DO 719.46 PAIN IN JOINT INVOLVING LOWER LEG 08/26/2014 WESLEY MOYER DO 780.52 INSOMNIA UNSPECIFIED 10/04/2014 JESUS ALY SOFTWARE TEAM LEADER Ot 719.46 10/04/2014 JESUS ALY SOFTWARE TEAM LEADER Ot 959.7 10/04/2014 JESUS ALY SOFTWARE TEAM LEADER Ot E000.8 10/04/2014 JESUS ALY SOFTWARE TEAM LEADER Ot E849.0 10/04/2014 JESUS ALY SOFTWARE TEAM LEADER Ot E880.9 10/04/2014 JESUS ALY SOFTWARE TEAM LEADER Ot E885.9 Procedures Code [place] [address] UA LONG DIP 01/21/2013 07330 ROUTINE VENIPUNCTURE 06/06/2014 80217 CMP 06/06/2014 23917 LIPID PANEL 06/06/2014 2301670 GFR CALC (RESULT ONLY) 06/06/2014 93374 THERAPUTIC INJ SQ/IM 06/29/2014 J1885 TORADOL INJ 06/29/2014 70074 MRI EXTREMITY, LOWER RIGHT, W/O CONTRAST 08/10/2014 Results Test Result Range CBC With Differential/Platelet - 07/15/16 08:37 WBC 13.9 x10E3/uL 3.4-10.8 RBC 5.54 x10E6/uL 4.14-5.80 Hemoglobin 16.5 g/dL 12.6-17.7 Hematocrit 46.4 % 37.5-51.0 MCV 84 fL 79-97 MCH 29.8 pg 26.6-33.0 MCHC 35.6 g/dL 31.5-35.7 RDW 14.3 % 12.3-15.4 Platelets 311 x10E3/uL 150-379 Neutrophils 53 % Lymphs 37 % Monocytes 9 % Eos 1 % Basos 0 % Neutrophils (Absolute) 7.2 x10E3/uL 1.4-7.0 Lymphs (Absolute) 5.1 x10E3/uL 0.7-3.1 Monocytes(Absolute) 1.3 x10E3/uL 0.1-0.9 Eos (Absolute) 0.2 x10E3/uL 0.0-0.4 Baso (Absolute) 0.1 x10E3/uL 0.0-0.2 Immature Granulocytes 0 % Immature Grans (Abs) 0.0 x10E3/uL 0.0-0.1 Hematology Comments: Note: Comp. Metabolic Panel (14) - 07/15/16 08:37 Glucose, Serum 125 mg/dL 65-99 BUN 12 mg/dL 6-24 Creatinine, Serum 1.35 mg/dL 0.76-1.27 eGFR If NonAfricn Am 63 mL/min/1.73 >59 eGFR If Africn Am 73 mL/min/1.73 >59 BUN/Creatinine Ratio 9 9-20 Sodium, Serum 140 mmol/L 134-144 Potassium, Serum 4.8 mmol/L 3.5-5.2 Chloride, Serum 99 mmol/L 97-108 Carbon Dioxide, Total 26 mmol/L 18-29 Calcium, Serum 9.8 mg/dL 8.7-10.2 Protein, Total, Serum 6.8 g/dL 6.0-8.5 Albumin, Serum 4.3 g/dL 3.5-5.5 Globulin, Total 2.5 g/dL 1.5-4.5 A/G Ratio 1.7 1.1-2.5 Bilirubin, Total 0.6 mg/dL 0.0-1.2 Alkaline Phosphatase, S 36 IU/L 39-117 AST (SGOT) 16 IU/L 0-40 ALT (SGPT) 20 IU/L 0-44 Lipid Panel - 07/15/16 08:37 Cholesterol, Total 224 mg/dL 100-199 Triglycerides 110 mg/dL 0-149 HDL Cholesterol 92 mg/dL >39 VLDL Cholesterol Aki 22 mg/dL 5-40 LDL Cholesterol Calc 110 mg/dL 0-99 CULTURE, ANAEROBIC AND AEROBIC - 07/30/18 09:18 CULTURE, ANAEROBIC BACTERIA W/GRAM STAIN SEE NOTE NRG CULTURE, AEROBIC BACTERIA SEE NOTE NRG Encounters ACCT No. Visit Date/Time Discharge Status Pt. Type Provider Facility Loc./Unit Complaint [id number] 08/26/2014 15:37:00 08/26/2014 23:59:59 CLS Outpatient COMFORT WESLEY [id number] 08/10/2014 14:01:00 08/10/2014 23:59:59 CLS Outpatient JESUS ALY APRN [id number] 07/23/2014 09:41:00 07/23/2014 23:59:59 CLS Outpatient MOYER WESLEY [id number] 07/08/2014 15:03:00 07/08/2014 23:59:59 CLS Outpatient WESLEY MOYER DO [id number] 06/29/2014 17:23:00 06/29/2014 23:59:59 CLS Outpatient RAFFI VAZQUEZ APRN [id number] 06/13/2014 11:47:00 06/13/2014 23:59:59 CLS Outpatient JESUS ALY APRN [id number] 06/06/2014 09:41:00 06/06/2014 23:59:59 CLS Outpatient COMFORT WESLEY [id number] 01/21/2013 15:23:00 01/21/2013 23:59:59 CLS Outpatient RAMONA OLVERA, JAYLEN [id number] 01/08/2012 08:24:00 01/08/2012 23:59:59 CLS Outpatient TICO CASSIDY APRN [id number] 07/16/2016 13:05:00 Document Registration [id number] 05/20/2018 16:40:00 05/20/2018 23:59:59 CLS Outpatient RAFFI VAZQUEZ APRN [facility] [id number] 07/30/2018 08:40:00 Document Registration [id number] 08/17/2014 12:13:00 08/17/2014 23:59:59 CLS Outpatient JESUS ALY [facility] RAD [id number] 08/09/2018 10:26:00 ACT Emergency THADDEUS OLVERA, KIMBERLY Aguilar [facility] ER EARACHE L EAR
--- NOTE | 2018-08-09 10:55 | ED EENT ---
History of Present Illness General Chief Complaint: Ear Problems Stated Complaint: EARACHE L EAR Nursing Triage Note: ARRIVED VIA AMB TO ROOM 06 Source: patient Exam Limitations: no limitations History of Present Illness Date Seen by Provider: Aug 09, 2018 Time Seen by Provider: 10:32 Initial Comments Patient presents to the ER by private conveyance with chief complaint that today he's been having severe pain in his left ear. He does not have a history of recurrent ear infections or ear surgeries. He's had no trauma. He denies any painful teeth or discharge in the mouth. No sore throat fevers chills cough. Allergies and Home Medications Allergies Coded Allergies: No Known Drug Allergies (Unverified , 08/09/18) Patient Home Medication List Home Medication List Reviewed: Yes Review of Systems Review of Systems Constitutional: No chills, No fever Eyes: Denies Blindness, Denies Blurred Vision Ears: Denies Dizziness; Pain (L) Nose: denies clots, denies congestion Mouth: denies clots, denies loose teeth, denies pain, denies swelling Past Kjpfzpz-Bcvhig-Lrhzcb Hx Patient Social History Alcohol Use: Denies Use Recreational Drug Use: No Smoking Status: Current Everyday Smoker Recent Foreign Travel: No Contact w/Someone Who Travel: No Recent Infectious Disease Expo: No Past Medical History Orthopedic Respiratory: No Cardiac: Yes Hypertension Neurological: No Genitourinary: No Gastrointestinal: No Musculoskeletal: No Endocrine: Yes Diabetes, Insulin dep, Diabetes, Non-Insulin dep Cancer: No Integumentary: No Physical Exam Vital Signs Vital Signs - First Documented 08/09/18 10:37 Temp 97.8 Pulse 68 Resp 16 B/P (MAP) 157/103 (121) Pulse Ox 95 O2 Delivery Room Air Height, Weight, BMI Height: 6'8.00" Weight: 285lbs. oz. 129.535584im; BMI Method:Stated General Appearance: WD/WN, no apparent distress Eyes: bilateral eye normal inspection, bilateral eye PERRL, bilateral eye EOMI Ears: right ear canal normal; left ear other (canals are swollen, tender, erythematous without discharge); bilateral ear auricle normal, bilateral ear TM normal Nose: normal inspection; No discharge Mouth/Throat: normal mouth inspection, pharynx normal; No dental tenderness Neck: non-tender, normal inspection Cardiovascular: normal peripheral pulses, regular rate, rhythm Progress/Results/Core Measures Results/Orders My Orders Orders - KIMBERLY TRAVIS Ketorolac Injection (Toradol Injection) (08/09/18 11:15) Vital Signs/I&O 08/09/18 10:37 Temp 97.8 Pulse 68 Resp 16 B/P (MAP) 157/103 (121) Pulse Ox 95 O2 Delivery Room Air Blood Pressure Mean: 121 Progress Progress Note : Time: 11:12 Progress Note Irrigated the left ear L and observed a normal-appearing left TM but a left canal obviously infected. Departure Impression Primary Impression: Otitis externa Qualified Codes: H60.392 - Other infective otitis externa, left ear Disposition: HOME, SELF-CARE Condition: Stable Departure-Patient Inst. Decision time for Depature: 11:13 Referrals: [facility] (PCP) Primary Care Physician RAFFI VAZQUEZ (Family) Primary Care Physician Patient Instructions: Outer Ear Infection (DC) Add. Discharge Instructions: Use the antibiotic drops 4 times a day for the next 7-10 days. If you're not seeing some modest improvement in 3-4 days or resolution in 7-10 days then you should follow-up with a primary care provider for reevaluation of your ear. All discharge instructions reviewed with patient and/or family. Voiced understanding. Scripts Neomycin/Polymyxin B Sulf/Hc (Cypuoetj-Ehuernrmf-Bf Ear Soln) 10 Ml Solution 4 DROPS OT QID for 10 Days, #10 ML 0 Refills Prov: KIMBERLY TRAVIS 08/09/18 KIMBERLY TRAVIS Aug 09, 2018 10:55
[2018-08-09] MEDS ORDERED: KETOROLAC 30 MG/ML VIAL IM ONE (11:15)
[2018-08-09] MEDS ORDERED: NEOM10SO8 OT (11:16)
[2018-08-09 11:22] VITALS: BP 157/103
== END 2018-08-09 11:22 | disposition home or self-care (01) ==
LOC: EDUNIT# 10:25 → ER 10:26
DX: H60.92 Unspecified otitis externa, left ear (principal); I10 Essential (primary) hypertension; E11.9 Type 2 diabetes mellitus without complications; F17.200 Nicotine dependence, unspecified, uncomplicated
CPT/HCPCS: 99284